=== PATIENT | female | born 1975 | race Caucasian/White ===

== ENCOUNTER 2016-10-21 10:51 | Inpatient (IN) | payer OTHER, MEDICARE ==
[~2016-10-21] VITALS: Ht 167.6 cm; Wt 113.4 kg
[~2016-10-21 10:51] MED LIST: ALBUTEROL0.09 MG/A1 INH; BREO ELLIPTA 21 EACH PO; CAMILA0.35 MG PO; CLARITIN10 MG PO; COZAAR50 M1 PO; KLONOPIN0.5 M1 PO; LAMICTAL150 M1 PO; LATUDA120 M1 PO; LATUDA40 MG PO; LATUDA80 MG PO; LEVOTHYROXINE75 MCG PO; LISINOPRIL20 M1 PO; PRAVACHOL20 M2 PO; SINGULAIR10 M1 PO; TRIAMTERENE-HC1 EAC1 PO; VIIBRYD10 M1 PO; VIIBRYD20 MG PO; VIIBRYD40 MG PO
[2016-10-21] MEDS ORDERED: FUROSEMIDE40 M1 PO (10:53)
[2016-10-21] MEDS ORDERED: METFORMIN HCL1000 M1 PO (10:54)
[2016-10-21] MEDS ORDERED: GLIMEPIRIDE4 M1 PO (10:54)
[2016-10-21] MEDS ORDERED: CLOPIDOGREL75 M1 PO (10:54)
[2016-10-21] MEDS ORDERED: CHANTIX0.5 M1 PO (10:55)
[2016-10-21] MEDS ORDERED: GABAPENTIN400 M2 PO (10:58)
--- NOTE | 2016-10-21 11:00 | NUR ---
BEHZAD FROM OUT PT PSYCH, SENT IN FOR SUICIDAL IDEATION. TOLD COUNSELOR SHE WOULD TRY TO KILL SELF BY OVERDOSING ON MEDS OR JUMPING IN FRONT OF CAR. STATES HSE HAS BEEN ADMITTED TO [facility] X 2 (UNSURE OF DATES). CO-OPERATIVE, EVALUATED BY DR. DONOVAN.
--- NOTE | 2016-10-21 11:00 | ED PSYCHIATRIC COMPLAINT ---
History of Present Illness General Chief Complaint: Psychiatric Related Complaint Stated Complaint: BIBA +SI Source: patient, EMS Exam Limitations: no limitations Vital Signs & Intake/Output Vital Signs & Intake/Output Vital Signs Date Time Temp Pulse Resp B/P Pulse O2 O2 Flow FiO2 Ox Delivery Rate 10/21 1643 98.4 79 18 94 Room Air 10/21 1641 170/109 10/21 1502 98.0 88 18 168/88 98 Room Air 10/21 1110 98.2 90 18 174/90 098 Room Air Allergies Coded Allergies: NO KNOWN ALLERGIES (04/11/15) Reconcile Medications Clonazepam (Klonopin) 0.5 MG TABLET 1 TAB PO TIDPRN PRN ANXIETY (Reported) Clopidogrel Bisulfate (Clopidogrel) 75 MG TABLET 1 TAB PO DAILY BLOOD THINNER (Reported) Duloxetine HCl 20 MG CAPSULE.DR 1 CAP PO BID MENTAL HEALTH (Reported) Fluphenazine HCl 10 MG TABLET 1.5 TAB PO BID MENTAL HEALTH (Reported) Fluticasone/Vilanterol (Breo Ellipta 200-25 Mcg INH) 200 MCG-25 MCG/DOSE BLST.W.DEV 1 PUFF PO DAILY BREATHING PROBLEMS (Reported) Furosemide 40 MG TABLET 1 TAB PO DAILY WATER PILL (Reported) Gabapentin 400 MG CAPSULE 1 CAP PO 5 TIMES A DAY UNKNOWN (Reported) Glimepiride 4 MG TABLET 1 TAB PO DAILY DM (Reported) Lamotrigine (Lamictal) 150 MG TABLET 1 TAB PO BID MENTAL HEALTH (Reported) Levothyroxine Sodium 75 MCG TABLET 1 TAB PO DAILY AC THYROID (Reported) Lisinopril 20 MG TABLET 1 TAB PO DAILY BP (Reported) Losartan Potassium (Cozaar) 50 MG TABLET 1 TAB PO DAILY HEART (Reported) Lurasidone HCl (Latuda) 120 MG TABLET 1 TAB PO QPM MENTAL HEALTH (Reported) Melatonin 10 MG TABLET 1 TAB PO QPM SLEEP (Reported) Metformin HCl 1,000 MG TABLET 1 TAB PO BID DM (Reported) Montelukast Sodium (Singulair) 10 MG TABLET 1 TAB PO DAILY ASTHMA (Reported) Pravastatin Sodium (Pravachol) 20 MG TABLET 1 TAB PO QPM CHOLESTEROL ( Reported) Triamterene/Hydrochlorothiazid (Triamterene-Hctz 37.5-25 MG Tb) 37.5 MG-25 MG TABLET 1 TAB PO DAILY HEART (Reported) Varenicline Tartrate (Chantix) 0.5 MG TABLET 1 TAB PO BID SMOKING (Reported) Vilazodone Hydrochloride (Viibryd) 10 MG TABLET 1 TAB PO DAILY MENTAL HEALTH (Reported) Triage Nurses Notes Reviewed? yes HPI: Patient sent over from [facility] for evaluation of increasing depression and suicidal thoughts. Patient has a plan to either overdose or jump out of a moving car. Patient denies any homicidal ideations. Patient denies any hallucinations. Patient states that the depression is getting the way of her activities of daily living. Past History Travel History Traveled to [place] past 21 day No Medical History Any Pertinent Medical History? see below for history Neurological: NONE EENT: allergies Cardiovascular: hypertension, hyperlipidemia Respiratory: asthma, obstructive sleep apnea Gastrointestinal: NONE Hepatic: NONE Renal: NONE Musculoskeletal: pseudoarthritis spine Psychiatric: anxiety, bipolar disease, depression Endocrine: hypothyroidism Blood Disorders: anemia Cancer(s): NONE FIELD SEISMOLOGIST/Reproductive: cramps fibroid cystic ovaries History of MRSA: No History of VRE: No History of CDIFF: No Surgical History Surgical History: LUMBAR FUSION Psychosocial History Who do you live with Other (see notes) What is your primary language Greek Tobacco Use: Quit <30 days ago ETOH Use: occasional use Illicit Drug Use: denies illicit drug use Family History Hx Contributory? No Review of Systems Review of Systems Constitutional: Reports: no symptoms. EENTM: Reports: no symptoms. Respiratory: Reports: no symptoms. Cardiovascular: Reports: no symptoms. GI: Reports: no symptoms. Genitourinary: Reports: no symptoms. Musculoskeletal: Reports: no symptoms. Skin: Reports: no symptoms. Neurological/Psychological: Reports: see HPI, depressed. Hematologic/Endocrine: Reports: no symptoms. Immunologic/Allergic: Reports: no symptoms. All Other Systems: Reviewed and Negative Physical Exam Physical Exam General Appearance: well developed/nourished, mild distress Head: atraumatic Eyes: Bilateral: PERRL, EOMI. Ears, Nose, Throat: normal pharynx, normal ENT inspection, hearing grossly normal Neck: normal inspection, supple Respiratory: normal breath sounds Cardiovascular: regular rate/rhythm Gastrointestinal: soft, non-tender Extremities: normal range of motion Neurological/Psychiatric: no motor/sensory deficits, awake, alert, oriented x 3 Appearance/Memory/Insight: appropriate appearance, appropriate insight Behavoir/Eye Contact/Speech: cooperative, normal speech, good eye contact Thoughts/Hallucinations: normal thought pattern, no apparent hallucination Skin: intact, normal color, warm/dry SAD PERSONS Done? CRISIS CONSULTATION OBTAINED Progress Differential Diagnosis: drug intoxication, drug overdose, drug withdrawal, electrolyte abnormality Plan of Care: Orders Procedure Date/time Status Consistent Carbohydrate 3 10/21 D Active Intake & Output 10/21 1644 Active Admit to inpatient psych 10/21 1532 Active Lab Add-on Test 10/21 1520 Active URINE 10/21 1520 Active Patient Data - inpatient psych 10/21 1507 Active Admit to inpatient psych 10/21 1507 Active LIPID PANEL 10/21 1116 Complete GLYCOSYLATED HGB 10/21 1116 Complete Continuous Observation Monitor 10/21 1059 Active URINE DRUGS OF ABUSE 10/21 1059 Complete THYROID STIMULATING HORMONE 10/21 1059 Complete ETHANOL 10/21 1059 Complete COMPREHENSIVE METABOLIC PANEL 10/21 1059 Complete CBC WITHOUT DIFFERENTIAL 10/21 1059 Complete ED CRISIS PSYCH CONSULT 10/21 1059 Active Vital Signs 10/21 UNK Active Nursing Misc 10/21 UNK Active FingerStick- Glucose 10/21 UNK Active Alternative Nursing Therapy 10/21 UNK Active Activity/Ambulation 10/21 UNK Active Current Medications Sig/Yokasta Start time Last Medication Dose Stop Time Status Admin Budesonide/ 2 PUF DAILY 10/22 1000 AC Formoterol Fumarate (Symbicort) Clopidogrel Bisulfate 75 MG DAILY 10/22 1000 AC (Plavix) Furosemide 40 MG DAILY 10/22 1000 AC (Lasix) Glimepiride 4 MG DAILY AC 10/22 0700 AC (Amaryl) Levothyroxine Sodium 0.075 MG DAILY AC 10/22 0700 AC (Synthroid) Duloxetine HCl 20 MG BID 10/21 2199 AC (Cymbalta) Fluphenazine HCl 15 MG BID 10/21 2199 AC (Prolixin 5 MG Tablet.) Lamotrigine 150 MG BID 10/21 2199 AC (LaMICtal) Melatonin 10 MG AT BEDTIME 10/21 2199 AC (Melatonin) Montelukast Sodium 10 MG AT BEDTIME 10/21 2199 AC (Singulair) Furosemide 40 MG ONE ONE 10/21 174 UNVr (Lasix) 10/21 174 Losartan Potassium 50 MG DAILY 10/21 174 UNVr (Cozaar) Metformin HCl 1,000 MG 0800,1700 10/21 1700 AC (Glucophage) Pravastatin Sodium 20 MG 1700 10/21 1700 CAN (Pravachol) Clonazepam 0.5 MG Q6P PRN 10/21 1515 AC (KlonoPIN) 10/28 151 Gabapentin 400 MG Q4P PRN 10/21 1515 AC (Neurontin) Laboratory Tests 10/21/16 1215: Urine Opiates Screen < 100.00, Methadone Screen 44, Barbiturate Screen < 60, Ur Phencyclidine Scrn < 6.00, Amphetamines Screen < 100, U Benzodiazepines Scrn < 85, Urine Cocaine Screen < 50, Urine Cannabis Screen < 5.00 10/21/16 1116: Anion Gap 13, Estimated GFR > 60, BUN/Creatinine Ratio 11.0, Glucose 111 H, Hemoglobin A1c 5.2, Calcium 10.2, Total Bilirubin 1.1, AST 112 H, ALT 81 H, Alkaline Phosphatase 106, Total Protein 8.3 H, Albumin 4.8, Globulin 3.5, Albumin/Globulin Ratio 1.4, Triglycerides 380 H, Cholesterol 240 H, LDL Cholesterol, Calc 121, HDL Cholesterol 43, Cholesterol/HDL Ratio 6 H, TSH 4.340 H, CBC w Diff NO MAN DIFF REQ, RBC 4.31, MCV 85.7, MCH 28.7, RDW 14.9 H, MPV 9.1, Gran % 68.4, Lymphocytes % 20.4 L, Monocytes % 8.3, Eosinophils % 2.6, Basophils % 0.3, Absolute Granulocytes 6.3, Absolute Lymphocytes 1.9, Absolute Monocytes 0.8 H, Absolute Eosinophils 0.2, Absolute Basophils 0, PUBS MCHC 33.5 , Serum Alcohol < 10.0 Departure Departure Disposition: STILL A PATIENT Condition: Stable Clinical Impression Primary Impression: Suicidal ideation Secondary Impressions: Depression Referrals: PATIENT HAS NO PRIMARY CARE DR Departure Forms: Customer Survey General Discharge Information Psych Admission Note Psychiatric Admission: I have seen and evaluated SARINA JOHNSON. I have also reviewed all the pertinent lab results and diagnostic results. SAIRNA JOHNSON will be admitted to our inpatient Psychiatric unit for treatment and care. PA/PATHOLOGY TEACHER Co-Sign Statement Statement: ED Attending supervision documentation- [] I saw and evaluated the patient. I have also reviewed all the pertinent lab results and diagnostic results. I agree with the findings and the plan of care as documented in the PA's/PATHOLOGY TEACHER's documentation. [] I have reviewed the ED Record and agree with the PA's/PATHOLOGY TEACHER's documentation. [] Additions or exceptions (if any) to the PAs/PATHOLOGY TEACHER's note and plan are summarized below: []
[2016-10-21] MEDS ORDERED: FLUPHENAZINE HC10 M1 PO (11:02)
[2016-10-21] MEDS ORDERED: MELATONIN10 M2 PO (11:03)
[2016-10-21] MEDS ORDERED: DULOXETINE HCL20 MG PO (11:04)
--- NOTE | 2016-10-21 11:12 | ED PSY CRISIS COLLATERAL NOTE ---
Collateral Note Collateral Note Family/Inform/Hubert Contacts: Cindy Pretty, GEOGRAPHIC INFORMATION SYSTEM ANALYST therapist in Out pt tx informed that pt was being sent to the ED and sent the following information in an email to explain why: Thelma Ferrell was just sent by ambulance to the ER. Thanks, Sergei for your heads up email on 10/14, and for consulting with me by phone today. I spoke with Yani in crisis. [place] friends [place], appeared to have a good time, but then had thoughts of jumping out of the moving car on the highway. Since then, she's been having thoughts everyday of overdosing on alcohol and pills. Despite the fact that Sergei's refills have been weekly, she said that she had "a bunch" of diabetic medication which she could use, although she wasn't sure how effective it would be. Cindy Schwartz
--- NOTE | 2016-10-21 11:19 | NUR ---
BLOOD DRAWN AND SENT TO THE LAB BY [facility] (SST,LAV,BLUE)
[2016-10-21 11:37] LABS: ABSOLUTE BASOPHIL COUNT 0 /CUMM (0.0-0.2); ABSOLUTE EOSINOPHIL COUNT 0.2 /CUMM (0.0-0.7); ABSOLUTE GRANULOCYTE CT 6.3 /CUMM (1.4-6.5); ABSOLUTE LYMPH COUNT 1.9 /CUMM (1.2-3.4); ABSOLUTE MONOCYTE COUNT 0.8 /CUMM (0.10-0.60); BASOPHIL % 0.3 % (0.0-2.0); EOSINOPHIL % 2.6 % (0-5); GRANULOCYTE % 68.4 % (42.2-75.2); HEMATOCRIT 36.9 % (37-47); MEAN CORPUSCULAR HGB 28.7 PG (27.0-31.0); MEAN CORPUSCULAR HGB CONC 33.5 G/DL (33.0-37.0); MEAN CORPUSCULAR VOLUME 85.7 FL (81.0-99.0); MEAN PLATELET VOLUME 9.1 FL (7.4-10.4); PLATELET COUNT 247 /CUMM (130-400); RBC DISTRIBUTION WIDTH 14.9 % (11.5-14.5); RED BLOOD CELL CT 4.31 /CUMM (4.20-5.40); WHITE BLOOD CELL COUNT 9.2 /CUMM (4.8-10.8)
--- NOTE | 2016-10-21 11:43 | NUR ---
CARE OF PATIENT ASSUMED. PT INFORMED OF PLAN OF CARE. PT NEEDS TO OBTAIN UA SAMPLE. PT STATES SHE FEELS WORTHLESS AND DEPRESSED. SHE SAYS SHE SHOULD HAVE REGISTERED HER CAR MONTHS AGO AND HAS BEEN PUTTING IT OFF. PT IS TEARFUL WHEN RECALLING EVENTS AND STATES "I'M JUST A SLOB". BEST FRIEND BY HER SIDE COMFORTING HER. PT LIVES WITH BEST FRIEND. PT OFFERS NO OTHER COMPLAINTS. STATES SHE TOOK ALL HER MEDS YESTERDAY. WILL CONTINUE TO MONITOR. PT ON CONTINUOUS OBSERVATION IN THE HALLWAY.
--- NOTE | 2016-10-21 13:22 | NUR ---
PT IS CALM AND TALKING TO HER BEST FRIEND. OFFERS NO COMPLAINTS. WILL CONTINUE TO MONITOR.
--- NOTE | 2016-10-21 14:58 | NUR ---
PT SLEEPING. NO COMPLAINTS. WILL CONTINUE TO MONITOR
--- NOTE | 2016-10-21 14:58 | ED PSYCH CRISIS CONSULTATION ---
Crisis Consult Basic Assessment Date of Consult: 10/21/16 Insurance Authorization: Insurance #1: Insurance name: MEDICARE A Phone number: Policy number: [id number] Group number: Authorization number: ED Provider: Patient's ED Provider: VENUS FRANCISCO,CLAIRE Mckinnon Primary Care Physician: Patient's PCP: RACH KRISHNAN MD PCP's Current Psychiatrist: Sergei Villalba APRN Chief Complaint: Psychiatric Related Complaint Patient's Quote: "I have been having suicidal thoughts everyday" Present Illness: 41 yo SCF BIBA from appointment at [facility] with therapist Cindy Espinoza LCSW for SI. The Pt has a h/o Bipolar Disorder MRE depressed severe, PTSD, and Alcohol use disorder in remission. She has a know h/o of chronic SI as well as multiple hospitalizations most recently on [facility] in August of 2015. She has been experiencing increasing depression over the past few weeks initially endorsing intermittent SI with plans to OD to her perscriber on 10/14. At that time she verbalized a safety plan and changes were made to medication including increase of Prolixin and d/c of Viibryd with taper to Cymbalta. Today she presented to her therapist with increasing SI everyday x 4 days. On Tuesday she was riding home from the casino with her friends and even though she was happy and won money had urges to jump out of car on the highway. She has also had plans to overdose on her diabetes medication. She no longer felt safe and when asked if she felt she needed hospitalization she felt she did. Patient's Address: [address] [place] [address] Other Phone Number: Who Do You Live With? Other (see notes) Family/Informants Interviewed: no family/collateral ID'd Allergies - Coded Allergies: NO KNOWN ALLERGIES (04/11/15) Current Medications - Scheduled Medications Clopidogrel Bisulfate (Clopidogrel) 75 MG TABLET 1 TAB PO DAILY BLOOD THINNER #30 (Reported) Entered as Reported by BRITTANY ROY on 10/21/16 1054 Duloxetine HCl [address]LE.DR Graham CAP PO BID MENTAL HEALTH #14 (Reported) Entered as Reported by BRITTANY ROY on 10/21/16 1104 Fluphenazine HCl 10 MG TABLET 1.5 TAB PO BID MENTAL HEALTH (Reported) Entered as Reported by BRITTANY ROY on 10/21/16 1102 Fluticasone/Vilanterol (Breo Ellipta 200-25 Mcg INH) 200 MCG-25 MCG/DOSE BLST.W.DEV 1 PUFF PO DAILY BREATHING PROBLEMS (Reported) Entered as Reported by BRITTANY ROY on 09/01/15 1029 Furosemide 40 MG TABLET 1 TAB PO DAILY WATER PILL #30 (Reported) Entered as Reported by BRITTANY ROY on 10/21/16 1053 Gabapentin 400 MG CAPSULE 1 CAP PO 5 TIMES A DAY UNKNOWN #70 (Reported) Entered as Reported by BRITTANY ROY on 10/21/16 1058 Glimepiride 4 MG TABLET 1 TAB PO DAILY DM #30 (Reported) Entered as Reported by BRITTANY ROY on 10/21/16 1054 Lamotrigine (Lamictal) 150 MG TABLET 1 TAB PO BID MENTAL HEALTH (Reported) Entered as Reported by LOGAN FERNANDEZ on 04/11/15 223 Levothyroxine Sodium 75 MCG TABLET 1 TAB PO DAILY AC THYROID (Reported) Entered as Reported by LOGAN FERNANDEZ on 04/11/15 223 Lisinopril 20 MG TABLET 1 TAB PO DAILY BP (Reported) Entered as Reported by LOGAN FERNANDEZ on 04/11/15 223 Losartan Potassium (Cozaar) 50 MG TABLET 1 TAB PO DAILY HEART (Reported) Entered as Reported by BRITTANY ROY on 09/01/15 1029 Lurasidone HCl (Latuda) 120 MG TABLET 1 TAB PO QPM MENTAL HEALTH (Reported) Entered as Reported by BRITTANY ROY on 09/08/15 1157 Melatonin 10 MG TABLET 1 TAB PO QPM SLEEP (Reported) Entered as Reported by BRITTANY ROY on 10/21/16 1103 Metformin HCl 1,000 MG TABLET 1 TAB PO BID DM #60 (Reported) Entered as Reported by BRITTANY ROY on 10/21/16 1054 Montelukast Sodium (Singulair) 10 MG TABLET 1 TAB PO DAILY ASTHMA (Reported) Entered as Reported by ASH ROY on 09/08/15 1852 Pravastatin Sodium (Pravachol) 20 MG TABLET 1 TAB PO QPM CHOLESTEROL ( Reported) Entered as Reported by LOGAN FERNANDEZ on 04/11/15 2240 Triamterene/Hydrochlorothiazid (Triamterene-Hctz 37.5-25 MG Tb) 37.5 MG-25 MG TABLET 1 TAB PO DAILY HEART (Reported) Entered as Reported by BRITTANY ROY on 09/01/15 1029 Varenicline Tartrate (Chantix) 0.5 MG TABLET 1 TAB PO BID SMOKING (Reported) Entered as Reported by BRITTANY ROY on 10/21/16 1055 Vilazodone Hydrochloride (Viibryd) 10 MG TABLET 1 TAB PO DAILY MENTAL HEALTH (Reported) Entered as Reported by BRITTANY ROY on 09/01/15 1028 Scheduled PRN Medications Clonazepam (Klonopin) 0.5 MG TABLET 1 TAB PO TIDPRN PRN ANXIETY (Reported) Entered as Reported by LOGAN FERNANDEZ on 04/11/15 2236 Laboratory Results: Laboratory Tests 10/21/16 1215: Urine Opiates Screen < 100.00, Methadone Screen 44, Barbiturate Screen < 60, Ur Phencyclidine Scrn < 6.00, Amphetamines Screen < 100, U Benzodiazepines Scrn < 85, Urine Cocaine Screen < 50, Urine Cannabis Screen < 5.00 10/21/16 1116: Anion Gap 13, Estimated GFR > 60, BUN/Creatinine Ratio 11.0, Glucose 111 H, Calcium 10.2, Total Bilirubin 1.1, AST 112 H, ALT 81 H, Alkaline Phosphatase 106, Total Protein 8.3 H, Albumin 4.8, Globulin 3.5, Albumin/Globulin Ratio 1.4 , TSH 4.340 H, CBC w Diff NO MAN DIFF REQ, RBC 4.31, MCV 85.7, MCH 28.7, RDW 14.9 H, MPV 9.1, Gran % 68.4, Lymphocytes % 20.4 L, Monocytes % 8.3, Eosinophils % 2.6, Basophils % 0.3, Absolute Granulocytes 6.3, Absolute Lymphocytes 1.9, Absolute Monocytes 0.8 H, Absolute Eosinophils 0.2, Absolute Basophils 0, PUBS MCHC 33.5, Serum Alcohol < 10.0 Past History Past Medical History Neurological: NONE EENT: allergies Cardiovascular: hypertension, hyperlipidemia Respiratory: asthma, obstructive sleep apnea Gastrointestinal: NONE Hepatic: NONE Renal: NONE Musculoskeletal: pseudoarthritis spine Psychiatric: anxiety, bipolar disease, depression Endocrine: hypothyroidism Blood Disorders: anemia Cancer(s): NONE PHILANTHROPY OFFICER/Reproductive: cramps fibroid cystic ovaries Past Surgical History Surgical History: LUMBAR FUSION Psychosocial History Strengths/Capabilities: Able to ask for help Desire to feel better Engaged in tx; med compliant Physical Limitations (Interventions): None identified Psychiatric Treatment History Psych Treatment Psychiatric Treatment Yes Inpatient Treatment Yes Outpatient Treatment Yes Location of Treatment [facility] Reason for Treatment Bipolar I Dates of Treatment Most recent inpatient in 2x 08/2015, 2008 Response to Treatment D/c to [facility]PS, +response Diagnosis by History: Bipolar d/o PTSD ETOH use d/o in remission Substance Use/Abuse History Drug Use/Abuse Substances Used/Abused No (None currently) Substance Abuse Treatment Substance Abuse Treatment Past Substance Abuse [place] No Current Mental Status Mental Status Orientation: Person, Place, Situation Affect: Blunted Speech: Soft Neuro-vegetative: Concentration Poor, Energy Decreased, Helpless, Hypersomnia, Sleep Disturbance Appearance Appearance- Dress/Hygiene: Unkempt, showering 2x monthly Behaviors Thought Process: WNL Thought Content: WNL Memory: WNL Insight: WNL SI/HI Risk Assessment Past Suicidal Ideation/Attempts Yes Current Suicidal Ideation/Att Yes Past Homicidal Ideation/Att: No Current Homicidal Ideation/Attempts No Degree of Intent: Plan Danger To: Self Gravely Disabled: No Risk Factors: access to lethal means, high anxiety/distress, SA/MH hospitalized, limited support Lethality Ratin PTSD Checklist PTSD Score: PTSD Score: Response Value Disturbing memories,thoughts,images of stressful experience? Moderately 3 Disturbing dreams of stressful experience from past? Moderately 3 Suddenly acting/feeling as if reliving stressful experience? A little bit 2 Physical reactions when reminded of stressful experience? Moderately 3 Avoid thinking/talking of stressful exp. to avoid reactions? Moderately 3 Avoid activities/situations that remind of stressful exp.? Quite a bit 4 Trouble remembering important parts of stressful experience? Moderately 3 Loss of interest in things that you used to enjoy? Quite a bit 4 Feeling distant or cut off from other people? Moderately 3 Feeling emotionally numb/unable to love those close to you? Quite a bit 4 Feeling as if your future will somehow be cut short? Moderately 3 Trouble falling or staying asleep? Quite a bit 4 Feeling irritable or having angry outbursts? A little bit 2 Having difficulty concentrating? Quite a bit 4 Being super alert or watchful on guard? Moderately 3 Feeling jumpy or easily startled? Moderately 3 Total 51 ED Management Sitter: No Restraints: No DSM5/PS Stressors/Medical Prob Diagnosis' (DSM 5, Stressors, Medical): (F31.4)Bipolar Disorder MRE depressed severe (F43.10)PTSD Alcohol use disorder in remission HTN, hyperlipidemia, asthma, hypothyroid, lumbar fusion, knee pain, sleep apnea, dysmenorrhea, migraines, vit D deficiency, PCOS, DMII Current GAF: 30 Departure Disposition Psych Medical Clearance Date: 10/21/16 Psychiatrist Consulted: Israel Burk MD Date Disposition Established: 10/21/16 Time Disposition Established: 1508 Plan for Disposition - Modality: Inpatient Psychiatry Rationale for Disposition: Suicidal ideation Type of IP Admission: Voluntary Referrals EULOGIO FRANCISCO,RACH Cruz (PCP/Family)
--- NOTE | 2016-10-21 15:25 | NUR ---
PT SLEEPING AT THIS TIME
--- NOTE | 2016-10-21 16:44 | NUR ---
PT EATING DINNER AT THIS TIME FINGER FOOD TRAY
--- NOTE | 2016-10-21 17:46 | NUR ---
PT STATES SHE HAS NOT TAKEN HER MEDS TODAY AND WHEN ASKED IF SHE TOOK THEM YESTERDAY SHE STATES SHE TRIES TO BE CONSISTANT BY DOESN'T REMEMBER
--- NOTE | 2016-10-21 17:58 | NUR ---
REPORT GIVEN TO DEAN DE LA CRUZ STATES PT BP NEEDS TO BE LOWERED BEFORE PT TRANSPORTED DR. DONOVAN ORDERED PT'S MEDICATONS GIVEN AT THIS TIME WILL MONITOR
--- NOTE | 2016-10-21 19:22 | NUR ---
NURSE IN REPORT UNABLE TO RELAY CURRENT BP
--- NOTE | 2016-10-21 19:49 | NUR ---
PER DEAN PT OK TO GO TO [facility]
[2016-10-21 19:59] VITALS: BP 156/66
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
--- NOTE | 2016-10-21 23:46 | History & Physical ---
General Information and HPI MD Statement: I have seen and personally examined SARINA JOHNSON and documented this H&P. The patient is a 41 year old F who presented with a patient stated chief complaint of [depression, SI]. Source of Information: patient Exam Limitations: no limitations History of Present Illness: 41 yo morbidly obese F with h/o DORIAN on CPAP, HTN, HLD, T2DM, asthma/COPD, hypothyroidism, bipolar disorder is admitted to Inpatient psychiatry for worsening depression and suicidal ideation. Please refer to Psych H and P for more details. She currently denies chest pain, dyspnea, palpitations, nausea, vomiting, fever, abdominal pain or urinary symptoms. She was diagnosed with T2DM - 2 months ago, and was prescribed metformin and glimepiride by her PCP. But she stopped taking glimepiride for past 2 weeks due to GI side effects. She previously had a diagnoses of Asthma, but was recently told that she has COPD, was initiated on inhalers which did not work for her. She is yet to make an appointment with Pulm for outpatient PFTs, and management of her COPD. Allergies/Medications Allergies: Coded Allergies: NO KNOWN ALLERGIES (10/22/16) Home Med list Clonazepam (Klonopin) 0.5 MG TABLET 1 TAB PO TIDPRN PRN ANXIETY (Reported) Clopidogrel Bisulfate (Clopidogrel) 75 MG TABLET 75 MG PO DAILY BLOOD THINNER (Reported) Duloxetine HCl 20 MG CAPSULE.DR 1 CAP PO BID MENTAL HEALTH (Reported) Fluphenazine HCl 10 MG TABLET 1.5 TAB PO BID MENTAL HEALTH (Reported) Furosemide 40 MG TABLET 1 TAB PO DAILY WATER PILL (Reported) Gabapentin 400 MG CAPSULE 1 CAP PO 5 TIMES A DAY UNKNOWN (Reported) Glimepiride 4 MG TABLET 1 TAB PO DAILY DM (Reported) Lamotrigine (Lamictal) 150 MG TABLET 1 TAB PO BID MENTAL HEALTH (Reported) Levothyroxine Sodium 75 MCG TABLET 1 TAB PO DAILY AC THYROID (Reported) Losartan Potassium (Cozaar) 50 MG TABLET 1 TAB PO DAILY HEART (Reported) Melatonin 10 MG TABLET 1 TAB PO QPM SLEEP (Reported) Metformin HCl 1,000 MG TABLET 1 TAB PO BID DM (Reported) Montelukast Sodium (Singulair) 10 MG TABLET 1 TAB PO DAILY ASTHMA (Reported) Pravastatin Sodium (Pravachol) 20 MG TABLET 1 TAB PO QPM CHOLESTEROL ( Reported) Vilazodone Hydrochloride (Viibryd) 10 MG TABLET 1 TAB PO DAILY MENTAL HEALTH (Reported) Compliance With Home Meds: FAIR Past History Travel History Traveled to [place] past 21 day No Medical History Neurological: NONE EENT: allergies Cardiovascular: hypertension, hyperlipidemia Respiratory: asthma, COPD, obstructive sleep apnea Gastrointestinal: NONE Hepatic: NONE Renal: NONE Musculoskeletal: pseudoarthrosis spine scoliosis Psychiatric: anxiety, bipolar disease, depression Endocrine: diabetes, hypothyroidism Blood Disorders: anemia Cancer(s): NONE CHIEF CLERK/Reproductive: fibroid polycystic ovarian syndrome History of MRSA: No History of VRE: No History of CDIFF: No Isolation History: Standard Influenza Vaccine: 07/11/16 Surgical History Surgical History: LUMBAR FUSION Past Family/Social History Family History Relations & Conditions if any MOTHER (Hypertension). Maternal grandfather (Stroke). FATHER (Prostate cancer). Psychosocial History Where do you live? Home Who Do You Live With? self Services at Home: None Primary Language: Sierra Leonean Smoking Status: Former Smoker (quit 2 months ago) ETOH Use: occasional use Illicit Drug Use: denies illicit drug use Functional Ability ADLs Independent: dressing, eating, toileting, bathing. Ambulation: independent IADLs Independent: shopping, housework, telephone, transportation, medication admin. Review of Systems Review of Systems Constitutional: Denies: chills, fever, weakness. EENTM: Reports: no symptoms. Cardiovascular: Denies: chest pain, palpitations, syncope. Respiratory: Denies: cough, short of breath, stridor, wheezing. GI: Denies: abdominal pain, diarrhea, nausea, vomiting. Genitourinary: Denies: dysuria, frequency, hematuria. Musculoskeletal: Denies: back pain, joint pain, joint swelling. Skin: Reports: no symptoms. Neurological/Psychological: Reports: see HPI. All Other Systems: Reviewed and Negative Exam & Diagnostic Data Last 24 Hrs of Vital Signs/I&O Vital Signs Date Time Temp Pulse Resp B/P Pulse O2 O2 Flow FiO2 Ox Delivery Rate 10/21 2250 96 10/21 195 99.4 77 156/66 10/21 1915 77 22 172/78 10/21 1834 180/99 10/21 1758 98.4 79 18 170/109 10/21 1643 98.4 79 18 94 Room Air 10/21 1641 170/109 10/21 1502 98.0 88 18 168/88 98 Room Air 10/21 1110 98.2 90 18 174/90 098 Room Air Intake & Output 10/21 1600 10/21 0800 10/21 0000 Intake Total Output Total Balance Patient 250 lb Weight Physical Exam General Appearance Alert, Oriented X3, Cooperative, No Acute Distress Skin No Rashes, No Breakdown HEENT Atraumatic, PERRLA, Mucous Membr. moist/pink Neck Supple Cardiovascular Regular Rate, Normal S1, Normal S2, No Murmurs Lungs Clear to Auscultation, Normal Air Movement Abdomen Normal Bowel Sounds, Soft, No Tenderness Neurological Exam Findings: Normal Gait, Normal Speech, Strength at 5/5 X4 Ext, Sensation Intact, Cranial Nerves 3-12 NL Cranial Nerves II through XII: Grossly intact Extremities No Edema, Normal Pulses Last 24 Hrs of Labs/Alen: Laboratory Tests 10/21/16 1520: Urine Test Cancelled 10/21/16 1215: Urine Opiates Screen < 100.00, Methadone Screen 44, Barbiturate Screen < 60, Ur Phencyclidine Scrn < 6.00, Amphetamines Screen < 100, U Benzodiazepines Scrn < 85, Urine Cocaine Screen < 50, Urine Cannabis Screen < 5.00, Urine Test NEGATIVE 10/21/16 1116: Anion Gap 13, Estimated GFR > 60, BUN/Creatinine Ratio 11.0, Glucose 111 H, Hemoglobin A1c 5.2, Calcium 10.2, Total Bilirubin 1.1, AST 112 H, ALT 81 H, Alkaline Phosphatase 106, Total Protein 8.3 H, Albumin 4.8, Globulin 3.5, Albumin/Globulin Ratio 1.4, Triglycerides 380 H, Cholesterol 240 H, LDL Cholesterol, Calc 121, HDL Cholesterol 43, Cholesterol/HDL Ratio 6 H, TSH 4.340 H, CBC w Diff NO MAN DIFF REQ, RBC 4.31, MCV 85.7, MCH 28.7, RDW 14.9 H, MPV 9.1, Gran % 68.4, Lymphocytes % 20.4 L, Monocytes % 8.3, Eosinophils % 2.6, Basophils % 0.3, Absolute Granulocytes 6.3, Absolute Lymphocytes 1.9, Absolute Monocytes 0.8 H, Absolute Eosinophils 0.2, Absolute Basophils 0, PUBS MCHC 33.5 , Serum Alcohol < 10.0 Diagnostic Data EKG Results -- CXR Results -- Assessment/Plan Assessment: 41 yo morbidly obese F is admitted to Inpatient Psychiatry for depression and suicidal ideation. 1. Management per Psych team. 2. DORIAN. Continue with CPAP at night. 3. Hypertension. Ct. losartan and lasix. 4. T2DM. Accucheks, Ct. Metformin. Patient has not been taking glimepiride for 2 weeks now due to GI side effects. A1c 5.2 (normal). Will hold off on this medication, consult Endo. 5. HLD. Ct. pravastatin. 6. Hyp[address]roidism. Ct. synthroid. TSH is elevated, will check free T4. Compliance unclear. Endo consult to assist with adjustment of her medications. 7. Asthma/ COPD, Seasonal allergies. Ct. singulair. TRC nebs. Patient will follow up with Pulm as outpatient for PFTs and management of COPD. She has tried inhalers (Breo-ellipta) but did not seem to help. 8. Transaminitis ?unclear etiology ?fatty liver vs. ?statin induced. Will trend LFTs. If persistently elevated, may have to consider holding statins. DVT ppx - low risk, early ambulation. As Ranked By This Provider Problem List: 1. Major depressive disorder 2. Depression 3. Suicidal ideation Miscellaneous Miscellaneous Documentation Attending Case Discussed With: SUSHMA FRANCISCO,ROCHELLE Primary Care Physician: EULOGIO FRANCISCO,RACH Cruz Patient sees these Specialists -- Level of Patient Care: JERRY Cardenas MD Review Statement Attending Statement Attending Statement: examined this patient, discuss w/resident/PA/LEATHER STAKER
--- NOTE | 2016-10-21 23:46 | Admission Certification ---
Admission Certification Certification Statement - As attending physician, I certify that at the time of - admission, based on clinical presentation, severity of - symptoms, need for further diagnostic testing and - therapeutic interventions, and risk of adverse outcomes - without in-hospital treatment, in my clinical assessment, - this patient requires an acute hospital stay for a minimum - of two nights or longer. I have also considered psychsocial - factors such as support system, advanced age, financial - issues, cognitive issues, and failed out-patient treatments, - past re-admission history, safety of patient, and lack of - compliance as applicable. Specific rationale supporting this admission is: Depression, suicidal ideation.
[2016-10-22 08:00] VITALS: BP 166/88
--- NOTE | 2016-10-22 09:08 | SOCIAL WORKER TX PLAN PSYCH ---
Treatment Plan - Please Document: - Evidence that there is ongoing collaboration between - the patient and the interdisciplinary team, - including the patient's active participation and - responsibility for engaging in the treatment regimen, - and that the treatment plan is individualized and - relevant to the patient's conditions. - Treatment plan should reflect documentation indicating - that all active therapeutic efforts are included. Strengths/Capabilities: Able to ask for help Desire to feel better Engaged in tx; med compliant Physical Limitations (Interventions): None noted Patient Identified Trmt Goals: " I want to live a better life." Discharge Plan: IOP Problem/Goals #1 Problem #1: suicidal ideation Goal (Short Term): Today I will attend 2 groups Today I will identify 2 stressors Today I will identify 2 positive supports Today I will work on recognizing 3 emotions I am feeling Goal (Children'S Tutor): Be free of suicidal thoughts/attempts Develop 3 coping skills to deal with depression Identify 3 positive support systems to call in crisis Develop a crisis plan with 3 colby people Identify 2 positive traits per week about myself Identify 2 things I have to look forward to Identify 2 positive people in my life and 1 thing I appreciate about them Interventions: Learn ways to manage depressive symptoms accordingly and identify positive supports to manage life stressors and mood fluctuations. Modalities: Encourage groups, education on depression, provide CBT treatment, family meeting. DSM5/PS Stressors/Medical Prob Diagnosis' (DSM 5, Stressors, Medical): (F31.4)Bipolar Disorder MRE depressed severe (F43.10)PTSD Per Sergei Huron FINISHER SPECIAL STOCKS Alcohol use disorder in remission Meidcal per Sergei Orly FINISHER SPECIAL STOCKS- HTN, hyperlipidemia, asthma, hypothyroid, lumbar fusion, knee pain, sleep apnea, dysmenorrhea, migraines, vit D deficiency, PCOS, DMII Stressors: finances Current GAF: 30 Treatment Team - Responsibilities of members of the treatment team include: - Medication Management- MD or FINISHER SPECIAL STOCKS - Medication Administration and Monitoring- Nurse - Group Therapy- Occupational Therapist - 1:1 Therapy,Disch Planning,family involvement-Superintendent Power
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
[2016-10-22 12:23] VITALS: BP 166/96
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
--- NOTE | 2016-10-22 13:20 | NUR ---
PT IS COMPLIANT WITH UNIT RULES. PT HAS BEEN OUT IN THE COMMUNITY INTERACTING AT TIMES WITH STAFF AND PEERS. PT KEEPS TO SELF MOST OF THE TIME. PT IS ACTIVE IN GROUPS. PT REPORTED FEELING "SAD" TODAY. PT DENIES SI THOUGHTS. PT MOOD IS STABLE WITH A FLAT AFFECT.
--- NOTE | 2016-10-22 14:06 | Cons- Endocrinology ---
General Information and HPI Consulting Request Date of Consult: 10/22/16 Requested By: Yudith Reason for Consult: management of DM type 2 and hypothyroidism Source of Information: patient Exam Limitations: no limitations History of Present Illness: 41 yo morbidly obese F with h/o DORIAN on CPAP, HTN, HLD, T2DM, asthma/COPD, hypothyroidism, bipolar disorder was admitted for worsening depression and suicidal ideation. She was on metformin 1000 mg twice a day and levothyroxine 75 mcg daily. Blood work showed TSH 4.34, free T4 1.78; HbA1c 5.2%, AST 112 and ALT 81; CHOL 240, TRIG 380, HDL 43 and LDL 121. She is on Pravastatin 20 mg daily as well. Her FSG was 133. Allergies/Medications Allergies: Coded Allergies: NO KNOWN ALLERGIES (10/22/16) Home Med List: Clonazepam (Klonopin) 0.5 MG TABLET 1 TAB PO TIDPRN PRN ANXIETY (Reported) Clopidogrel Bisulfate (Clopidogrel) 75 MG TABLET 75 MG PO DAILY BLOOD THINNER (Reported) Duloxetine HCl 20 MG CAPSULE.DR 1 CAP PO BID MENTAL HEALTH (Reported) Fluphenazine HCl 10 MG TABLET 1.5 TAB PO BID MENTAL HEALTH (Reported) Furosemide 40 MG TABLET 1 TAB PO DAILY WATER PILL (Reported) Gabapentin 400 MG CAPSULE 1 CAP PO 5 TIMES A DAY UNKNOWN (Reported) Glimepiride 4 MG TABLET 1 TAB PO DAILY DM (Reported) Lamotrigine (Lamictal) 150 MG TABLET 1 TAB PO BID MENTAL HEALTH (Reported) Levothyroxine Sodium 75 MCG TABLET 1 TAB PO DAILY AC THYROID (Reported) Losartan Potassium (Cozaar) 50 MG TABLET 1 TAB PO DAILY HEART (Reported) Melatonin 10 MG TABLET 1 TAB PO QPM SLEEP (Reported) Metformin HCl 1,000 MG TABLET 1 TAB PO BID DM (Reported) Montelukast Sodium (Singulair) 10 MG TABLET 1 TAB PO DAILY ASTHMA (Reported) Pravastatin Sodium (Pravachol) 20 MG TABLET 1 TAB PO QPM CHOLESTEROL ( Reported) Vilazodone Hydrochloride (Viibryd) 10 MG TABLET 1 TAB PO DAILY MENTAL HEALTH (Reported) Review of Systems Review of Systems Constitutional: Reports: see HPI. Cardiovascular: Denies: chest pain. Respiratory: Denies: short of breath. GI: Denies: abdominal pain. Hematologic/Endocrine: Denies: polyuria, polydipsia. 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 Maternal grandfather (Stroke). FATHER (Prostate cancer). Psychosocial History Where Do You Live? Home Who Do You Live With? self Services at Home: None Primary Language: Wolof Smoking Status: Former Smoker (quit 2 months ago) ETOH Use: occasional use Illicit Drug Use: denies illicit drug use Functional Ability ADLs Independent: dressing, eating, toileting, bathing. Ambulation: independent IADLs Independent: shopping, housework, telephone, transportation, medication admin. Exam & Diagnostic Data Last 24 Hrs of Vital Signs/I&O Vital Signs Date Time Temp Pulse Resp B/P Pulse O2 O2 Flow FiO2 Ox Delivery Rate 10/22 1345 Room Air Room Air 10/22 1223 92 166/96 10/22 0945 96 166/88 10/22 0800 98.4 96 166/88 10/22 0006 84 95 10/21 2250 96 10/21 1959 99.4 77 156/66 10/21 1915 77 22 172/78 10/21 1834 180/99 10/21 1758 98.4 79 18 170/109 10/21 1643 98.4 79 18 94 Room Air 10/21 1641 170/109 10/21 1502 98.0 88 18 168/88 98 Room Air Intake & Output 10/22 1600 10/22 0800 10/22 0000 Intake Total 240 Output Total Balance 240 Intake, Oral 240 Patient 250 lb Weight Physical Exam General Appearance: anxious, obese Neck: thyromegaly Respiratory: lungs clear Cardiovascular: regular rate/rhythm Gastrointestinal: distention Extremities: no edema Labs/Alen Results: Laboratory Tests 10/21 10/21 10/21 1520 1215 1116 Chemistry Sodium (137 - 145 mmol/L) 144 Potassium (3.5 - 5.1 mmol/L) 4.4 Chloride (98 - 107 mmol/L) 101 Carbon Dioxide (22 - 30 mmol/L) 29 Anion Gap (5 - 16) 13 BUN (7 - 17 mg/dL) 11 Creatinine (0.5 - 1.0 mg/dL) 1.0 Estimated GFR (>60 ml/min) > 60 BUN/Creatinine Ratio (7 - 25 %) 11.0 Glucose (65 - 99 mg/dL) 111 H Hemoglobin A1c (4.2 - 5.8 %) 5.2 Calcium (8.4 - 10.2 mg/dL) 10.2 Total Bilirubin (0.2 - 1.3 mg/dL) 1.1 AST (14 - 36 U/L) 112 H ALT (9 - 52 U/L) 81 H Alkaline Phosphatase (<127 U/L) 106 Total Protein (6.3 - 8.2 g/dL) 8.3 H Albumin (3.5 - 5.0 g/dL) 4.8 Globulin (1.9 - 4.2 gm/dL) 3.5 Albumin/Globulin Ratio (1.1 - 2.2 %) 1.4 Triglycerides (<150 mg/dL) 380 H Cholesterol (<200 MG/DL) 240 H LDL Cholesterol, Calc (65 - 129 mg/dL) 121 HDL Cholesterol (40 - 60 mg/dL) 43 Cholesterol/HDL Ratio (0.00 - 4.23 %) 6 H TSH (0.270 - 4.200 uIU/mL) 4.340 H Free T4 (0.64 - 1.79 ng/dL) 1.78 Hematology CBC w Diff NO MAN DIFF REQ WBC (4.8 - 10.8 /CUMM) 9.2 RBC (4.20 - 5.40 /CUMM) 4.31 Hgb (12.0 - 16.0 G/DL) 12.4 Hct (37 - 47 %) 36.9 L MCV (81.0 - 99.0 FL) 85.7 MCH (27.0 - 31.0 PG) 28.7 RDW (11.5 - 14.5 %) 14.9 H Plt Count (130 - 400 /CUMM) 247 MPV (7.4 - 10.4 FL) 9.1 Gran % (42.2 - 75.2 %) 68.4 Lymphocytes % (20.5 - 51.1 %) 20.4 L Monocytes % (1.7 - 9.3 %) 8.3 Eosinophils % (0 - 5 %) 2.6 Basophils % (0.0 - 2.0 %) 0.3 Absolute Granulocytes (1.4 - 6.5 /CUMM) 6.3 Absolute Lymphocytes (1.2 - 3.4 /CUMM) 1.9 Absolute Monocytes (0.10 - 0.60 /CUMM) 0.8 H Absolute Eosinophils (0.0 - 0.7 /CUMM) 0.2 Absolute Basophils (0.0 - 0.2 /CUMM) 0 PUBS MCHC (33.0 - 37.0 G/DL) 33.5 Toxicology Urine Opiates Screen (>2000 NG/ML) < 100.00 Methadone Screen (>300 NG/ML) 44 Barbiturate Screen (>200 NG/ML) < 60 Ur Phencyclidine Scrn (>25 NG/ML) < 6.00 Amphetamines Screen (>1000 NG/ML) < 100 U Benzodiazepines Scrn (>200 NG/ML) < 85 Urine Cocaine Screen (>300 NG/ML) < 50 Urine Cannabis Screen (>50 NG/ML) < 5.00 Serum Alcohol (<10 MG/DL) < 10.0 Urines Urine Test Cancelled NEGATIVE Assessment/Plan Assessment/Plan 41 yo morbidly obese F with h/o DORIAN on CPAP, HTN, HLD, T2DM, asthma/COPD, hypothyroidism, bipolar disorder was admitted for worsening depression and suicidal ideation. 1. DM: her glucose level is controlled with HbA1c of 5.2%. --- continue the current metformin 1000 mg twice a day; 2. hypothyroidism: TSH was mildly elevated which could be due to sick euthyroid changes. ---continue Levothyroxine 75 mcg daily. ---monitor TSH and free T4 tomorrow. 3. abnormal LFT: ? fatty liver; however, patient is on statin. ---repeat LFT tomorrow to look for a trend. Consult Acknowledgment - Thank you for your consult request.
--- NOTE | 2016-10-22 14:47 | SOCIAL WORKER PROG NOTE PSYCH ---
Social Work Progress Note Progress Note Met with Thelma, a 40yo single, female resides with roommates ( friend and her ) in [place], [place], recently accepted for Disability. Thelma was tearful, holding back tears during most of the session, sobbing at times, stating "I just feel worthless!" She presented to [facility] with SI, to overdose on pills or jump in front of a car. She cites worsening depression since Aug 2016, increased paranoia and fears (of beign bullied), and that her parents are dissapointed with her for not working and collecting disability. She stated today she feels safe on the unit, reports no SI now, no HI, denied AH/VH. She stated she has alot of negative thoughts going around in her head, and over the past few months, but has increased. She did not sleep well last night on the unit, reported sleep [employer] FEEDER has by increased - hypersomnia at home, poor ADL's showers 2x per month. She stated 'I thought I'd be happier getting disability, but I am feeling worse." She is paid $1,400 per month, alot of her retro income (retro back to 2016). She is on a spenddown of $4,000. Thelma identifies as asexual, and is a wiccan. 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 She got her bachelor's in General Studies in 2004. Her parents are supportive, she confirmed no one in her life is negative to her abot receiving Disability. She signed an EDELMIRA for a family meeting with her parents. She sees Cindy Pretty LCSW individually in OPS 1- 2x monthly, and Sergei Villalba APRN monthly for medications. Asked Thelma if she would do an IOP, she shook her head no. Informed Faith Bell LCSW of meeting with patient. Also, will inform Cindy Pretty LCSW in OPS.
[2016-10-22 16:01] VITALS: BP 156/91
[2016-10-22 19:47] VITALS: BP 170/96
--- NOTE | 2016-10-22 21:49 | NUR ---
Pt is out in the kt during change of shift. Tearful affect is flat, compliant and cooperative with the staff. Vital signs are stable c/o no pain. Will continue to monitor the pt overnight.
--- NOTE | 2016-10-23 06:37 | NUR ---
PATIENT SLEPT ALL NIGHT.
[2016-10-23 08:03] VITALS: BP 168/92
--- NOTE | 2016-10-23 11:03 | CP SOUTH PROGRESS NOTE PSYCH ---
Psych (Inpt) Progress Note Progress Note Include the following elements, when applicable: Involvement in the active treatment of the patient with behavioral observations of the patient and the patient's response to the treatment. Review of the ongoing treatment process in the context of the treatment plan. Indication of how multi-disciplinary staff members are carrying out the treatment plan. Plans for future interventions and recommendations for revision of the treatment plan. Liaison with other physicians/providers. Progress Note: Chart reviewed, patient progress discussed with nursing staff. Patient interviewed this morning. She was cooperative and friendly, says her mood is "improving". She denies any current suicidal or homicidal ideation. Denies perceptual disturbances. Denies any medication side effects. Eating and drinking fine. No further concerns voiced. Vitals reviewed and were notable for mild hypertension. Laboratory results from today were reviewed and notable for mildly elevated AST and ALT. Otherwise results are within normal limits. MS Gisel: Overweight female, mildly disheveled, appears older than stated age. Mild postural tremor. Cooperative with interview with fair eye contact. Speech was within normal limits. Mood was "getting better ". Affect was constricted, non-labile, congruent. Thought process was logical and linear. Thought content was within normal limits. Denies perceptual disturbances. Cognition was grossly intact. Insight and judgment were fair. A/P: Continue present management as per primary team.
--- NOTE | 2016-10-23 11:33 | PN- Diabetes ---
Assessment/Plan Assessment: 41 yo morbidly obese F with h/o DORIAN on CPAP, HTN, HLD, T2DM, asthma/COPD, hypothyroidism, bipolar disorder was admitted for worsening depression and suicidal ideation. 1. DM: She is on metformin 1000 mg twice a day; her HbA1c 5.2% 2. hypothyroidism: she is on Levothyroxine 75 mcg daily. Repeat TSH 4.100 and free T4 1.67. 3. abnormal LFT: ? fatty liver; patient is on pravastatin 20 mg daily. Repeat AST 84 and ALT 75 which are improving. Plan: 1. DM: --- continue the current metformin 1000 mg twice a day; 2. hypothyroidism: ---continue Levothyroxine 75 mcg daily. ---recommend thyroid u.s as outpatient. Subjective Subjective: She feels okay. Objective Last 24 Hrs of Vital Signs/I&O Vital Signs Date Time Temp Pulse Resp B/P Pulse O2 O2 Flow FiO2 Ox Delivery Rate 10/23 0805 90 168/92 10/23 0803 98.6 90 168/92 10/22 1947 99.6 96 170/96 10/22 1601 92 156/91 10/22 1345 Room Air Room Air 10/22 1223 92 166/96 Findings Pertinent Lab/Alen Results: Laboratory Tests 10/23 06 Chemistry Total Bilirubin (0.2 - 1.3 mg/dL) 1.0 Direct Bilirubin (< 0.4 mg/dL) 0.4 AST (14 - 36 U/L) 84 H ALT (9 - 52 U/L) 75 H Alkaline Phosphatase (<127 U/L) 94 Total Protein (6.3 - 8.2 g/dL) 7.4 Albumin (3.5 - 5.0 g/dL) 4.2 TSH (0.270 - 4.200 uIU/mL) 4.100 Free T4 (0.64 - 1.79 ng/dL) 1.67
[2016-10-23 12:52] VITALS: BP 168/98
--- NOTE | 2016-10-23 15:04 | NUR ---
PT IS COMPLIANT AND COOPERATIVE. MOOD IS STABLE WITH A FLAT AND TEARFUL AFFECT. PT DENIES SI AT THIS TIME, NO COMPLAINTS OFFERED. PT HAS BEEN ISOLATIVE AND WITHDRAWN IN BED MOST OF DAY- PRESENT ON UNIT FOR MEALS AND VITALS. PT HAS MINIMAL INTERACTION WITH PEERS AND STAFF. PT IS ATTENDING GROUPS. VITALS ARE STABLE, APPETITE IS GOOD.
[2016-10-23 15:43] VITALS: BP 164/94
--- NOTE | 2016-10-23 16:45 | NUR ---
Patient is A&O X 3, compliant with medication and group therapies. Patient appears very depressed and withdrawn, isolates in her room mostly on bed rest. Mood and affect are very depressed/ apathetic, vital sign is stable but hypertensive but denies any adverse s/s, denies pain, thought of self-harm and to someone else.
[2016-10-23 19:50] VITALS: BP 164/96
--- NOTE | 2016-10-23 21:13 | NUR ---
PT IS ISOLATIVE AND WITHDRAWN, REMAINING IN BED FOR MAJORITY OF EVENING. HAD A COUPLE VISITORS THROUGHOUT THE EVENING AND ATTENDED WRAP UP MEETING. COOPERATIVE AND COMPLIANT WITH STAFF. NO COMPLAINTS OR SI REPORTED. PT HAS A STABLE MOOD AND FLAT AFFECT.
[2016-10-24 08:32] VITALS: BP 152/92
[2016-10-24 12:18] VITALS: BP 168/98
--- NOTE | 2016-10-24 13:22 | CP SOUTH PROGRESS NOTE PSYCH ---
Psych (Inpt) Progress Note Progress Note Include the following elements, when applicable: Involvement in the active treatment of the patient with behavioral observations of the patient and the patient's response to the treatment. Review of the ongoing treatment process in the context of the treatment plan. Indication of how multi-disciplinary staff members are carrying out the treatment plan. Plans for future interventions and recommendations for revision of the treatment plan. Liaison with other physicians/providers. Progress Note: Chart reviewed, patient progress discussed with nursing staff. Patient interviewed this morning. Her presentation was almost a carbon copy from yesterday. She was cooperative and friendly, says her mood is "fine". She denies any current suicidal or homicidal ideation. Denies perceptual disturbances. Denies any medication side effects. Eating and drinking fine. No further concerns voiced. Vitals reviewed- mild hypertension persists. No new labs. MSE: Overweight female, mildly disheveled, appears older than stated age. Mild postural tremor. Cooperative with interview with fair eye contact. Speech was within normal limits. Mood was "fine". Affect was constricted, non- labile, congruent. Thought process was logical and linear. Thought content was within normal limits. Denies perceptual disturbances. Cognition was grossly intact. Insight and judgment were fair. A/P: Continue present management as per primary team.
[2016-10-24 15:26] VITALS: BP 160/94
--- NOTE | 2016-10-24 15:47 | NUR ---
Patient is A&O X 3, found to have persistent elevates BP & HR( 152/92 88, 468/98 96, and 160/94 148), blood sugar 160 mg/dL, but denies any adverse s/s. The HOD has been notified who ordered to recheck the patient between 30-60 minutes to assess of any alliviation. pt verbalizes she usually have elvated HR after some hot shower.
[2016-10-24 19:10] VITALS: BP 170/102
[2016-10-24 19:49] VITALS: BP 170/102
--- NOTE | 2016-10-24 21:03 | NUR ---
PT IS CALM, COOPERATIVE WITH STAFF AND PEERS, AND COMPLIANT WITH UNIT RULES. PT APPEARS IN MILIEU AT TIMES, OTHER TIMES IS FOUND IN PT ROOM, OUT OF MILIEU. WHILE IN MILIEU PT IS ISOLATIVE AND WITHDRAWN, MOSTLY STAYING TO SELF WITH LIMITED INTERACTION WITH OTHETRS. MOOD IS STABLE, AFFECT IS SLIGHTLY FLAT/CONSTRICTED, COMMUNICATION IS ORGANIZED AND NORMAL, AND APPETITE IS NORMAL. PT DENIES SI AT THIS TIME.
[2016-10-24 21:45] VITALS: BP 152/95
--- NOTE | 2016-10-24 21:48 | NUR ---
2145 REPORTED TO HOD B/P 152/95 HR 96 POST NORVASC 5MG.
[2016-10-25 08:06] VITALS: BP 142/93
--- NOTE | 2016-10-25 11:33 | SOCIAL WORKER PROG NOTE PSYCH ---
Social Work Progress Note Progress Note Patient to discharge the hospital today. Patient denies SI/HI/AH/VH at present. Patient reports feeling safe to return home today and resides with roommates who she has a good relationship with. Patient has agreed to re-start IOP at and has intake next Tuesday11/01/16 @ 11:15am. Patient states that she wishes to start IOP next week after she registers her car this week. Patients parents came in for family meeting today. They inquired about any medication changes made in the hospital and patients aftercare plan. Patient reported no side effects with recent increase in Cymbalta and plans to continue taking meds as prescribed. Family is aware that patient plans to start IOP next week as well. They identified no concerns for patient to discharge the hospital today.
[2016-10-25 12:11] VITALS: BP 150/84
--- NOTE | 2016-10-25 13:27 | CP SOUTH PROGRESS NOTE PSYCH ---
Psych (Inpt) Progress Note Progress Note Progress Note: I discussed this patient's progress to date, current mental status, treatment process in the context of the treatment plan, and discharge planning with staff/ team in the daily morning inpatient team meeting. I also met with the patient myself in individual session. A total of 30 minutes was spent with the patient with more than 50% spent in counseling and/or coordination of care. OBJECTIVE: Current Medications Sig/Yokasta Start time Last Medication Dose Route Stop Time Status Admin Acetaminophen 650 MG ONCE ONE 10/24 1914 DC 10/24 PO 10/24 Albuterol Sulfate 2 PUF Q 3-4 HRS PRN PRN 10/22 1400 AC INH Amlodipine Besylate 5 MG DAILY 10/24 2002 AC 10/25 PO 0821 Clonazepam 0.5 MG Q6P PRN 10/21 1515 AC 10/25 PO 10/28 1514 0824 Clopidogrel Bisulfate 75 MG DAILY 10/22 1000 AC 10/25 PO 0822 Duloxetine HCl 40 MG 0800,2200 10/22 2200 AC 10/25 PO 0821 Fluphenazine HCl 15 MG BID 10/21 2200 AC 10/25 PO 0822 Furosemide 40 MG DAILY 10/22 1000 AC 10/25 PO 0821 Gabapentin 400 MG 5 TIMES A DAY 10/22 0600 AC 10/25 PO 1000 Lamotrigine 150 MG BID 10/21 2200 AC 10/25 PO 0821 Levothyroxine Sodium 0.075 MG DAILY AC 10/22 0700 AC 10/25 PO 0706 Losartan Potassium 50 MG DAILY 10/21 1742 AC 10/25 PO 0821 Melatonin 10 MG AT BEDTIME 10/21 2200 AC 10/24 PO 2154 Metformin HCl 1,000 MG 0800,1700 10/21 1700 AC 10/21 PO 1758 Montelukast Sodium 10 MG AT BEDTIME 10/21 2200 AC 10/24 PO 2154 Patient Medication 1 UNIT ONE NR 10/24 2014 DC 10/24 Teaching ED 10/24 2099 2018 Pravastatin Sodium 20 MG 1700 10/22 1700 AC 10/24 PO 1534 Vital Signs Date Time Temp Pulse Resp B/P Pulse O2 O2 Flow FiO2 Ox Delivery Rate 10/25 1211 99 150/84 10/25 0821 93 142/93 10/25 0806 97.5 93 142/93 10/24 2145 96 20 152/95 96 10/24 2016 99.3 100 22 170/102 10/24 1949 99.3 100 170/102 10/24 1910 99.3 100 170/102 10/24 1534 99.5 10/24 1526 148 160/94 ASSESSMENT: Patient reports continuing depression, however states that she is not suicidal, is not having suicidal ideation. States she feels safe and ready for discharge. Calm and pleasant this morning, if somewhat flat. Reports tolerating increased dose of Cymbalta well, without complaint. We discussed discharge planning today, and patient states that although she would prefer to return to outpatient treatment, is willing to attend [facility] in the meanwhile. We also discussed patient's hypertension and tachycardia, states she will follow-up with primary care. duralumin metalworker Faith held a family meeting today along with her parents, who then brought her home after discharge. Depression:8/10; Anxiety:6/10 (with 10 the worst.) Denies suicidal ideation, homicidal ideation, auditory hallucinations, visual hallucinations, paranoid ideation. Patient states and also believes that she will not kill herself. She reports that she slept well last night, that her appetite is good. Speech is well articulated, goal-directed, average in rate, volume and tone. The patient understands the risks/benefits/side effects of the medication and is agreeable to continue taking them. PLAN: Discharge today, patient will follow-up at [facility], and her primary care physician, Dr. Onesimo Neely. Continue with current management as patient is improving. Continue to provide support and encouragement.
[2016-10-25] MEDS ORDERED: AMLODIPINE BESYL5 M1 PO (13:40)
--- NOTE | 2016-10-25 13:40 | DISCHARGE SUMMARY REPORT-PSYCH ---
See Addendum Visit Information Visit Dates/Diagnosis' Admission Date: 10/21/16 Discharge Date: 10/25/16 Reason for Admission: Presenting from [facility] for suicidal ideation, with a plan. Psy Discharge Primary Diag: Bipolar d/o, mre depressed, severe. Psy Discharge Secondary Diag: PTSD; Hx EtOH d/o, now in remission; HTN, hyperlipidemia; asthma, COPD; DORIAN; scoliosis, DM; hypothyroidism, POS. Hospital Course Significant Lab Findings: Lab ALT 75 U/L H 10/23/16 0605 AST 84 U/L H 10/23/16 0605 Free T4 1.67 ng/dL 10/23/16 0605 TSH 4.100 uIU/mL 10/23/16 06 Total Beta HCG NEGATIVE 09/08/15 1347 Course Complications: None. Consultations: Patient was seen for admission history and physical by Fina Delcid MD. Please refer to the H&P for additional information. Patient was seen for endocrinology consult by Dr. Jeffries. Please refer to her notes for additional information. Allergies: Coded Allergies: NO KNOWN ALLERGIES (10/22/16) Hospital Course/TX Response: The patient was monitored on the unit for safety, depression, and suicidal ideation. She participated in multimodal treatments on the unit. She was continued on outpatient medications of Lamictal for mood stability, and Prolixin. Cymbalta was increased to 40 mg twice daily for continuing depression and anxiety. Prior to discharge, a family meeting was held with rn social work Faith Bell LCSW, the patient and her parents. Please refer to Ms. Bell's note for additional information. Today, the day of discharge, she reports continuing depression, however states that she is not suicidal, is not having suicidal ideation. States she feels safe and ready for discharge. Calm and pleasant this morning, if somewhat flat. Reports tolerating increased dose of Cymbalta well, without complaint. We discussed discharge planning today, and patient states that although she would prefer to return directly to outpatient treatment, is willing to attend [facility] in the meanwhile. We also discussed patient's hypertension and tachycardia, states she will follow-up with her primary care physician. Depression:8/10; Anxiety:6/10 (with 10 the worst.) Denies suicidal ideation, homicidal ideation, auditory hallucinations, visual hallucinations, paranoid ideation. Patient states and also believes that she will not kill herself. She reports that she slept well last night, that her appetite is good. Speech is well articulated, goal-directed, average in rate, volume and tone. The patient understands the risks/benefits/side effects of the medication and is agreeable to continue taking them. Patient will follow-up at [facility], and her primary care physician, Dr. Onesimo Neely. She reports tolerating her medications well, without complaint. States she feels safe and ready for discharge. Discharge HBIPS - Tobacco Use Treatment Offered Post DC Medications Offered: NA-No Tob Use >30 days Post DC Tobacco Treatment Plan: NA-No Tobacco use >30days - EtOH/Drug Use D/O Treatment Offered Post DC Medications Offered: NA-No EtOH/Drug Use D/O Post DC EtOH/SubAbuse TX Plan: NA-No EtOH/Drug Use D/O Metabolic Screening - Screen if on a Neuroleptic Medication - Metabolic screening should include: - Blood Pressure, BMI, Glucose or Hgb A1c, & a - Lipid profile from within the past 365 days. Metabolic Screening () Not Applicable, patient not on a neuroleptic. OR ([x]) Patient on a neuroleptic(s) . Enter below results for Glucose or Hemoglobin A1C, and lipid panel if obtained during the last 365 days. BMI: 40.300 Blood Pressure: 150/84 Laboratory Results (If applicable): Lab Cholesterol 240 MG/DL H 10/21/16 1116 Cholesterol/HDL Ratio 6 % H 10/21/16 1116 HDL Cholesterol 43 mg/dL 10/21/16 1116 Hemoglobin A1c 5.2 % 10/21/16 1116 LDL Cholesterol, Calc 121 mg/dL 10/21/16 1116 Triglycerides 380 mg/dL H 10/21/16 1116 Discharge Instructions General Discharge Information Discharge Medications: Discharge Medications- (Dose, route, freq, indication): START taking these NEW Home Medications: Duloxetine Dose: ORAL, TWICE DAILY for Qty: 56 Called in to Hydrochloride 40 Milligram DEPRESSION Refills: 0 Pharm 2 (Cymbalta) 20 MG Last Taken:10/25/16 Time:8am Amlodipine Besylate Dose: ORAL, DAILY for HEART Qty: 14 Called in to (Amlodipine 5 Milligram HEALTH Refills: 0 Pharm 2 Besylate) 5 MG Last Taken:10/25/16 TABLET Time:8am CONTINUE taking these Home Medications: Lamotrigine (Lamictal) Dose: ORAL, TWICE DAILY for 150 MG TABLET 1 Tablet MENTAL HEALTH Last Taken:10/25/16 Time:8am Clonazepam (Klonopin) Dose: ORAL, THREE TIMES A DAY 0.5 MG TABLET 1 Tablet NEEDED as needed for ANXIETY Levothyroxine Sodium Dose: ORAL, DAILY BEFORE (Levothyroxine Sodium) 1 Tablet BREAKFAST for THYROID 75 MCG TABLET Last Taken:10/25/16 Time:7am Pravastatin Sodium Dose: ORAL, Every night for (Pravachol) 20 MG TABLET 1 Tablet CHOLESTEROL Last Taken:10/24/16 Time:3pm Losartan Potassium Dose: ORAL, DAILY for HEART (Cozaar) 50 MG TABLET 1 Tablet Last Taken:10/25/16 Time:8am Montelukast Sodium Dose: ORAL, DAILY for ASTHMA (Singulair) 10 MG TABLET 1 Tablet Last Taken:10/24/16 Time:10pm Furosemide (Furosemide) Dose: ORAL, DAILY for WATER 40 MG TABLET 1 Tablet PILL Last Taken:10/25/16 Time:8am Glimepiride Dose: ORAL, DAILY for DM (Glimepiride) 4 MG 1 Tablet not given in hospital TABLET Metformin HCl (Metformin Dose: ORAL, TWICE DAILY for DM HCl) 1,000 MG TABLET 1 Tablet refusing in hospital Clopidogrel Bisulfate Dose: ORAL, DAILY for BLOOD (Clopidogrel) 75 MG 75 Milligram THINNER TABLET Last Taken:10/25/16 Time:8am Gabapentin (Gabapentin) Dose: ORAL, 5 TIMES A DAY for 400 MG CAPSULE 1 Capsule UNKNOWN Last Taken:10/25/16 Time:2pm Fluphenazine HCl Dose: ORAL, TWICE DAILY for (Fluphenazine HCl) 10 MG 1.5 Tablet MENTAL HEALTH TABLET Last Taken:10/25/16 Time:8am Melatonin (Melatonin) 10 Dose: ORAL, Every night for MG TABLET 1 Tablet SLEEP Last Taken:10/24/16 Time:10pm STOP taking these DISCONTINUED Home Medications: Vilazodone Hydrochloride Dose: ORAL, DAILY for MENTAL HEALTH (Viibryd) 10 MG TABLET 1 Tablet Reason Stopped: Pt Decision, not taking Duloxetine HCl (Duloxetine Dose: ORAL, TWICE DAILY for MENTAL HCl) 20 MG CAPSULE. 1 Capsule HEALTH Reason Stopped: Changed Dose 1: [id number], [address] [place] [address] 2: [facility], [address] [place] [phone] Your Preferred Pharmacy [address] [id number] Multiple Neuroleptics: ([x]) Not Applicable OR Document below three failed attempts at monotherapy, or a plan to taper to monotherapy, or augmentation of Clozapine. () Patient's Diet: Regular Patient's Activity: No restrictions DC Disposition: She is returning to her home. Recommendations: Follow-up with your primary care physician for high blood pressure, pulse rate. As per endocrinology, consider thyroid ultrasound. Follow-up with intensive outpatient program. Medications as directed. Referred To: [facility] Service Date: 11/01/16 [address] [place] [address] Notes: IOP Intake: 11/01/16 11:15am [address] [place] [address] Copies To: [facility]; EULOGIO FRANCISCO,ONESIMO Cruz
[2016-10-25] MEDS ORDERED: CYMBALTA20 M1 PO (13:42)
--- NOTE | 2016-10-25 14:21 | NUR ---
Will be discharged today yot [facility] with follow up at [facility]. Mood is stable, euthymic affect. Denied thoughts of self harm when asked. Given education on suicide prevention and bipolar d/o.
--- NOTE | 2016-10-27 16:47 | IP INCIDENTAL NOTE PSYCH ---
Incidental Note Notation: This morning I spoke with the patient by phone, and reminded her that we had stopped her cholesterol medication, Pravastatin, due to elevated LFTs. Patient states that she will discontinue pravastatin, and follow up with her PMD, Dr. Neely. I also spoke today with the Alison, the SLEEP MANAGER at Dr. Neely's office to review the above, and the other medication changes made during her stay here, including the addition of amlodipine for blood pressure, and an increased dose of cymbalta for depression. Alison states that her office will follow up with the patient.
== END 2016-10-25 14:28 | DRG 885 ==
LOC: ERH 10:51 → ERHI 15:30 → CP SOUTH 15:30 → ENPENDDIS 15:30 → CP SOUTH 19:58
PROVIDERS: Emergency Medicine; ADMIT Psychiatry & Neurology Psychiatry
DX: F31.9 Bipolar disorder, unspecified (principal); M41.9 Scoliosis, unspecified; I10 Essential (primary) hypertension; F43.10 Post-traumatic stress disorder, unspecified; E78.5 Hyperlipidemia, unspecified; J45.909 Unspecified asthma, uncomplicated; J44.9 Chronic obstructive pulmonary disease, unspecified; G47.33 Obstructive sleep apnea (adult) (pediatric); E11.9 Type 2 diabetes mellitus without complications; E03.9 Hypothyroidism, unspecified
CPT/HCPCS: 36415; 80307; 81025; 90834; 93005; 93010; G0463; G0480; J3490